=== PATIENT | female | born 1985 | race Caucasian/White ===

== ENCOUNTER 2018-09-12 15:59 | Emergency (ER) | payer MEDICAID ==
[~2018-09-12] VITALS: Ht 154.9 cm; Wt 63.0 kg
[2018-09-12] MEDS ORDERED: PNV1TABL50 MT (16:24)
[2018-09-12] MEDS ORDERED: ACETAMINOPHEN 325MG TABLET PO PRN (17:30)
[2018-09-12 18:10] LABS: BASOPHILS % 0.2 % (0.0-2.0); EOSINOPHILS % 1.5 % (0.0-5.0); HEMATOCRIT. 37.8 % (36.0-48.0); HEMOGLOBIN. 12.8 g/dL (12.0-16.0); MEAN CORPUSCULAR HEMOGLOBIN 27.6 pg (28.0-32.0); MEAN CORPUSCULAR VOLUME 81.2 fL (81.0-99.0); MEAN PLATELET VOLUME 7.4 fl (7.4-10.4); MONOCYTES % 5.5 % (2.0-8.0); NEUTROPHILS % 72.8 % (40.0-76.0); PLATELET 273 x1000/uL (130-400); RED BLOOD CELL COUNT 4.65 mill/uL (4.2-5.4)
[2018-09-12 18:13] LABS: CHLORIDE 107 mEq/L (98-107)
[2018-09-12 18:58] LABS: CLARITY URINE TURBID (CLEAR); COLOR URINE YELLOW (YELLOW); KETONES URINE NEGATIVE (NEGATIVE); LEUKOCYTE ESTERASE URINE 3+ (NEGATIVE); NITRITE URINE NEGATIVE (NEGATIVE); OCCULT BLOOD URINE 2+ (NEGATIVE); PROTEIN URINE TRACE (NEGATIVE); SPECIFIC GRAVITY URINE 1.016 (1.005-1.030); UROBILINOGEN URINE 0.2 E.U./dL (0.2-1.0)
[2018-09-12 20:58] VITALS: BP 108/66
== END 2018-09-12 21:08 | disposition home or self-care (01) ==
LOC: ER 15:59
DX: O23.12 Infections of bladder in pregnancy, second trimester (principal); Z3A.17 17 weeks gestation of pregnancy; Z88.0 Allergy status to penicillin
CPT/HCPCS: 36415; 76805; 80048; 81025; 84702; 99284

== ENCOUNTER 2018-11-19 19:44 | Emergency (ER) | payer MEDICAID ==
[~2018-11-19 19:44] MED LIST: PNV1TABL50 MT
[2018-11-20] MEDS ORDERED: FERR325T6 PO (00:11)
[2018-11-20] MEDS ORDERED: PREN1TAB78 PO (00:11)
== END 2018-11-19 21:44 | disposition short-term general hospital (02) ==
LOC: ER 19:44
DX: O26.899 Other specified pregnancy related conditions, unspecified trimester (principal); R10.9 Unspecified abdominal pain; M54.9 Dorsalgia, unspecified; Z3A.00 Weeks of gestation of pregnancy not specified
CPT/HCPCS: 99285

== ENCOUNTER 2018-11-19 21:23 | Observation (INO) | payer MEDICAID ==
[2018-11-19 23:34] LABS: CLARITY URINE CLEAR (CLEAR); COLOR URINE YELLOW (YELLOW); KETONES URINE NEGATIVE (NEGATIVE); LEUKOCYTE ESTERASE URINE NEGATIVE (NEGATIVE); NITRITE URINE NEGATIVE (NEGATIVE); OCCULT BLOOD URINE 1+ (NEGATIVE); PROTEIN URINE NEGATIVE (NEGATIVE); SPECIFIC GRAVITY URINE 1.007 (1.005-1.030); UROBILINOGEN URINE 0.2 E.U./dL (0.2-1.0)
[2018-11-20] MEDS ORDERED: PREN1TAB78 PO (00:11)
[2018-11-20] MEDS ORDERED: FERR325T6 PO (00:11)
== END 2018-11-20 00:35 | disposition home or self-care (01) ==
LOC: 8 EST LDRP 21:23
PROVIDERS: ADMIT Specialist; ATTEND Specialist
DX: O26.892 Other specified pregnancy related conditions, second trimester (principal); M54.5 Low back pain; R42 Dizziness and giddiness; O62.9 Abnormality of forces of labor, unspecified; Z3A.27 27 weeks gestation of pregnancy
CPT/HCPCS: 81003; 99281; G0378

== ENCOUNTER 2018-12-20 11:26 | Observation (INO) | payer MEDICAID ==
[~2018-12-20] VITALS: Ht 157.5 cm; Wt 82.6 kg
[~2018-12-20 11:26] MED LIST changes: +FERR325T6 PO; -PNV1TABL50 MT; +PREN1TAB78 PO
[2018-12-20 12:30] LABS: CLARITY URINE CLEAR (CLEAR); COLOR URINE YELLOW (YELLOW); KETONES URINE NEGATIVE (NEGATIVE); LEUKOCYTE ESTERASE URINE 1+ (NEGATIVE); NITRITE URINE NEGATIVE (NEGATIVE); OCCULT BLOOD URINE 2+ (NEGATIVE); PH URINE 6.5 (4.5-8.0); PROTEIN URINE NEGATIVE (NEGATIVE); SPECIFIC GRAVITY URINE 1.007 (1.005-1.030)
[2018-12-20] MEDS ORDERED: CLINDAMYCIN 900 MG in DEXTROSE 5% WATER 50 ML IV SCH (13:00)
[2018-12-20] MEDS ORDERED: LACTATED RINGERS 1,000 ML IV SCH (13:00)
== END 2018-12-20 14:45 | disposition home or self-care (01) ==
LOC: 8 EST LDRP 11:26
PROVIDERS: ADMIT Obstetrics & Gynecology; ATTEND Obstetrics & Gynecology
DX: O26.893 Other specified pregnancy related conditions, third trimester (principal); M54.5 Low back pain; R10.2 Pelvic and perineal pain; R35.0 Frequency of micturition; R10.30 Lower abdominal pain, unspecified; Z3A.31 31 weeks gestation of pregnancy
CPT/HCPCS: 81003; 96365; 99281; G0378; J3490; J7060; 96360; 96361

== ENCOUNTER 2019-02-15 18:09 | Inpatient (IN) | payer MEDICAID ==
[~2019-02-15] VITALS: Ht 152.4 cm; Wt 73.9 kg
[2019-02-15] MEDS ORDERED: DEXT 5%/LR + PITOCIN 20UNITS/L 1,000 ML IV SCH (18:31)
[2019-02-15] MEDS ORDERED: LIDOCAINE HCL 1% 20ML VIAL (Pyxis) INJ INFIL SCH (18:45)
[2019-02-15 19:18] LABS: CLARITY URINE CLEAR (CLEAR); COLOR URINE YELLOW (YELLOW); KETONES URINE NEGATIVE (NEGATIVE); LEUKOCYTE ESTERASE URINE 1+ (NEGATIVE); NITRITE URINE NEGATIVE (NEGATIVE); OCCULT BLOOD URINE 2+ (NEGATIVE); PROTEIN URINE 2+ (NEGATIVE); SPECIFIC GRAVITY URINE 1.011 (1.005-1.030); UROBILINOGEN URINE 0.2 E.U./dL (0.2-1.0)
[2019-02-15 19:26] LABS: BASOPHILS % 0.4 % (0.0-2.0); EOSINOPHILS % 1.1 % (0.0-5.0); HEMATOCRIT. 33.8 % (36.0-48.0); HEMOGLOBIN. 11.5 g/dL (12.0-16.0); LYMPHOCYTES % 24.5 % (20.0-50.0); MEAN CORPUSCULAR HEMOGLOBIN 26.4 pg (28.0-32.0); MEAN CORPUSCULAR VOLUME 77.8 fL (81.0-99.0); MEAN PLATELET VOLUME 8.5 fl (7.4-10.4); MONOCYTES % 6.9 % (2.0-8.0); NEUTROPHILS % 67.1 % (40.0-76.0); PLATELET 238 x1000/uL (130-400); RED BLOOD CELL COUNT 4.35 mill/uL (4.2-5.4); RED CELL DISTRIBUTION WIDTH 15.6 % (11.6-14.6)
[2019-02-15 19:27] LABS: CHLORIDE 110 mEq/L (98-107)
[2019-02-15 19:29] LABS: *AMPHETAMINES SCREEN URINE NEGATIVE (NEGATIVE); *BARBITURATES SCREEN URINE NEGATIVE (NEGATIVE); *BENZODIAZEPINES SCREEN URINE NEGATIVE (NEGATIVE); *COCAINE SCREEN URINE NEGATIVE (NEGATIVE); INR 0.9; METHADONE URINE SCREEN NEGATIVE (NEGATIVE); OPIATES URINE SCREEN NEGATIVE (NEGATIVE); PARTIAL THROMBOPLASTIN TIME 26.5 sec (23.4-31.0); PROTHROMBIN TIME 9.2 sec (9.6-11.0)
[2019-02-15 19:30] LABS: CANNABINOID URINE SCREEN NEGATIVE (NEGATIVE); PHENCYCLIDINE URINE SCREEN NEGATIVE (NEGATIVE)
[2019-02-15 20:15] LABS: HEPATITIS B SURFACE ANTIGEN NEGATIVE
[2019-02-15] MEDS ORDERED: DIPHENHYDRAMINE 50MG/ML VIAL IV PRN (20:15)
[2019-02-15] MEDS ORDERED: DIPHENHYDRAMINE 50MG/ML VIAL IM PRN (20:15)
[2019-02-15] MEDS ORDERED: ROPIVACAINE HCL/PF EPIDURAL 200 ML EPI SCH (20:15)
[2019-02-15] MEDS ORDERED: ONDANSETRON HCL 4MG/2ML INJ IV PRN (20:15)
[2019-02-15] MEDS ORDERED: BUTORPHANOL TARTRATE 2 MG/ML VIAL IV NR (20:15)
[2019-02-15] MEDS: LACTATED RINGERS 1,000 ML IV SCH ×2 (20:16→22:47)
[2019-02-15 21:41] LABS: CLARITY URINE CLEAR (CLEAR); COLOR URINE YELLOW (YELLOW); KETONES URINE NEGATIVE (NEGATIVE); LEUKOCYTE ESTERASE URINE NEGATIVE (NEGATIVE); NITRITE URINE NEGATIVE (NEGATIVE); OCCULT BLOOD URINE 1+ (NEGATIVE); PH URINE 6.5 (4.5-8.0); PROTEIN URINE TRACE (NEGATIVE); SPECIFIC GRAVITY URINE 1.003 (1.005-1.030); UROBILINOGEN URINE 0.2 E.U./dL (0.2-1.0)
[2019-02-16] MEDS ORDERED: DEXT 5%/LR + PITOCIN 20UNITS/L 1,000 ML IV SCH ×2 (05:00→07:08)
[2019-02-16] MEDS ORDERED: RHO(D) IMMUNE GLOBULIN 300 MCG/SYR IM PRN (07:15)
[2019-02-16] MEDS ORDERED: ACETAMINOPHEN WITH CODEINE 300/30MG TABLET PO PRN (07:15)
[2019-02-16] MEDS ORDERED: IBUPROFEN 400MG TABLET PO PRN (07:15)
[2019-02-16] MEDS ORDERED: HEMORRHOIDAL SUPP PR PRN (07:15)
[2019-02-16] MEDS ORDERED: DIPHENHYDRAMINE 25MG CAPSULE PO PRN (07:15)
[2019-02-16] MEDS ORDERED: LANOLIN OINT 7GM TUBE TOP PRN (07:15)
[2019-02-16] MEDS ORDERED: GLYCERIN/WITCH HAZEL LEAF MEDICATED PAD TOP PRN (07:15)
[2019-02-16] MEDS: IBUPROFEN 800MG TABLET PO PRN ×2 (07:44→19:40)
[2019-02-16 10:00] VITALS: BP 132/65
[2019-02-16 10:30] VITALS: BP 136/62
[2019-02-16 15:20] VITALS: BP 138/69
[2019-02-16] MEDS: PRENATAL VIT/FE FUMARATE/FA TABLET PO SCH (19:40)
[2019-02-16] MEDS: DOCUSATE SODIUM 100MG CAPSULE PO SCH (21:00)
[2019-02-17] MEDS ORDERED: ERYTHROMYCIN 250MG TABLET PO SCH
[2019-02-17] MEDS: DOCUSATE SODIUM 100MG CAPSULE PO SCH (06:05)
[2019-02-17 07:11] LABS: BASOPHILS % 0.5 % (0.0-2.0); EOSINOPHILS % 1.5 % (0.0-5.0); HEMATOCRIT. 30.5 % (36.0-48.0); HEMOGLOBIN. 10.3 g/dL (12.0-16.0); LYMPHOCYTES % 24.8 % (20.0-50.0); MEAN CORPUSCULAR HEMOGLOBIN 26.5 pg (28.0-32.0); MEAN CORPUSCULAR VOLUME 78.5 fL (81.0-99.0); MEAN PLATELET VOLUME 8.8 fl (7.4-10.4); MONOCYTES % 7.4 % (2.0-8.0); NEUTROPHILS % 65.8 % (40.0-76.0); PLATELET 201 x1000/uL (130-400); RED BLOOD CELL COUNT 3.89 mill/uL (4.2-5.4); RED CELL DISTRIBUTION WIDTH 15.3 % (11.6-14.6)
[2019-02-17 08:06] VITALS: BP 129/84
[2019-02-17] MEDS: FERROUS SULFATE 325MG TABLET PO SCH ×3 (10:21→17:55)
[2019-02-17] MEDS: PRENATAL VIT/FE FUMARATE/FA TABLET PO SCH (10:21)
[2019-02-17] MEDS: IBUPROFEN 800MG TABLET PO PRN ×2 (10:26→16:17)
[2019-02-17] MEDS: ERYTHROMYCIN 250MG CAPSULE DR PO SCH ×2 (12:19→17:55)
[2019-02-17 16:23] VITALS: BP 128/67
[2019-02-17 19:45] VITALS: BP 126/69
[2019-02-18 00:48] VITALS: BP 138/60
[2019-02-18] MEDS: DOCUSATE SODIUM 100MG CAPSULE PO SCH (00:48)
[2019-02-18] MEDS: ERYTHROMYCIN 250MG CAPSULE DR PO SCH ×3 (00:48→12:34)
[2019-02-18] MEDS: IBUPROFEN 800MG TABLET PO PRN ×2 (00:48→09:02)
[2019-02-18 08:00] VITALS: BP 136/55
[2019-02-18] MEDS: PRENATAL VIT/FE FUMARATE/FA TABLET PO SCH (09:01)
[2019-02-18] MEDS: FERROUS SULFATE 325MG TABLET PO SCH ×2 (09:01→12:34)
== END 2019-02-18 12:15 | disposition home or self-care (01) | DRG 560 ==
LOC: OBSVTOIN 18:09 → 8 EST LDRP 18:09 → 8EST 02-16 11:53
PROVIDERS: ADMIT Specialist; ATTEND Specialist
PROC: 10E0XZZ Delivery of Products of Conception, External Approach (ICD-10-PCS; principal; 2019-02-16)
PROC: 3E0R3BZ Introduction of Anesthetic Agent into Spinal Canal, Percutaneous Approach (ICD-10-PCS; 2019-02-16)
PROC: 00HU33Z Insertion of Infusion Device into Spinal Canal, Percutaneous Approach (ICD-10-PCS; 2019-02-16)
DX: O80 Encounter for full-term uncomplicated delivery (principal); Z37.0 Single live birth; Z3A.38 38 weeks gestation of pregnancy; Z88.0 Allergy status to penicillin; Z79.899 Other long term (current) drug therapy
CPT/HCPCS: 36415; 80305; 84550; 85384; 86592; 86593; 86703; 86762; 86780; 86850; 86900; 87340; 99281; G0378; J0595; J2590; J2795; A4315

== ENCOUNTER 2020-04-30 22:17 | Inpatient (IN) | payer MEDICAID ==
[~2020-04-30] VITALS: Ht 157.5 cm; Wt 66.7 kg
[~2020-04-30 22:17] MED LIST changes: -PREN1TAB78 PO
[2020-04-30] MEDS ORDERED: MISOPROSTOL 100MCG TABLET VG SCH (23:15)
[2020-04-30] MEDS ORDERED: BUTORPHANOL TARTRATE 2 MG/ML VIAL IV PRN (23:15)
[2020-04-30] MEDS ORDERED: PENICILLIN G POTASSIUM 5 MMU in DEXT 5% WATER 100 ML IV SCH (23:15)
[2020-04-30] MEDS ORDERED: NALOXONE HCL 0.4 MG/ML 1ML VIAL IM PRN (23:15)
[2020-04-30] MEDS ORDERED: CARBOPROST TROMETHAMINE 250 MCG/ML AMPUL IM PRN (23:15)
[2020-04-30] MEDS ORDERED: LIDOCAINE HCL 1% 20ML VIAL (Pyxis) INJ INFIL SCH (23:15)
[2020-04-30] MEDS ORDERED: METHYLERGONOVINE MALEATE 0.2 MG/ML IM PRN (23:15)
[2020-04-30] MEDS ORDERED: PENICILLIN G POTASSIUM 2.5 MMU in DEXTROSE 5% WATER 50 ML IV SCH (23:30)
[2020-04-30] MEDS: LACTATED RINGERS 1,000 ML IV SCH (23:54)
[2020-05-01] MEDS ORDERED: CLINDAMYCIN 600 MG in DEXTROSE 5% WATER 50 ML IV SCH (00:30)
[2020-05-01 01:22] LABS: BASOPHILS % 0.2 % (0.0-2.0); EOSINOPHILS % 0.9 % (0.0-5.0); HEMATOCRIT. 31.3 % (36.0-48.0); HEMOGLOBIN. 10.6 g/dL (12.0-16.0); LYMPHOCYTES % 20.9 % (20.0-50.0); MEAN CORPUSCULAR HEMOGLOBIN 26.8 pg (28.0-32.0); MEAN PLATELET VOLUME 8.4 fl (7.4-10.4); PLATELET 268 x1000/uL (130-400); RED BLOOD CELL COUNT 3.97 mill/uL (4.2-5.4); RED CELL DISTRIBUTION WIDTH 13.9 % (11.6-14.6)
[2020-05-01] MEDS: CLINDAMYCIN 600MG PREMIX 50 ML IV SCH ×2 (01:26→09:03)
[2020-05-01 02:09] LABS: INR 0.9; PARTIAL THROMBOPLASTIN TIME 25.2 sec (23.4-31.0); PROTHROMBIN TIME 9.8 sec (9.6-11.0)
[2020-05-01 02:15] LABS: HEPATITIS B SURFACE ANTIGEN NEGATIVE
[2020-05-01 02:56] LABS: *AMPHETAMINES SCREEN URINE NEGATIVE (NEGATIVE); *BARBITURATES SCREEN URINE NEGATIVE (NEGATIVE); *BENZODIAZEPINES SCREEN URINE NEGATIVE (NEGATIVE); *COCAINE SCREEN URINE NEGATIVE (NEGATIVE); METHADONE URINE SCREEN NEGATIVE (NEGATIVE)
[2020-05-01 02:57] LABS: CANNABINOID URINE SCREEN NEGATIVE (NEGATIVE); OPIATES URINE SCREEN NEGATIVE (NEGATIVE); PHENCYCLIDINE URINE SCREEN NEGATIVE (NEGATIVE)
[2020-05-01 03:39] LABS: CLARITY URINE CLEAR (CLEAR); COLOR URINE DARK YELLOW (YELLOW); KETONES URINE TRACE (NEGATIVE); LEUKOCYTE ESTERASE URINE TRACE (NEGATIVE); NITRITE URINE NEGATIVE (NEGATIVE); OCCULT BLOOD URINE 1+ (NEGATIVE); PROTEIN URINE 1+ (NEGATIVE); SPECIFIC GRAVITY URINE 1.036 (1.005-1.030)
[2020-05-01] MEDS: LACTATED RINGERS 1,000 ML IV SCH (04:35)
[2020-05-01] MEDS ORDERED: ROPIVACAINE HCL/PF EPIDURAL 200 ML EPI SCH (08:15)
[2020-05-01] MEDS ORDERED: ROPIVACAINE HCL/PF EPIDURAL 200 ML EPI ONE (08:18)
[2020-05-01] MEDS: DEXT 5%/LR + PITOCIN 20UNITS/L 1,000 ML IV SCH ×2 (14:12→16:02)
[2020-05-01 16:15] VITALS: BP 119/58
[2020-05-01] MEDS ORDERED: DEXT 5%/LR + PITOCIN 20UNITS/L 1,000 ML IV SCH (16:55)
[2020-05-01] MEDS ORDERED: MINERAL OIL 30ML BOTTLE TOP PRN (17:00)
[2020-05-01] MEDS ORDERED: IBUPROFEN 400MG TABLET PO PRN (17:00)
[2020-05-01] MEDS ORDERED: DIPHENHYDRAMINE 25MG CAPSULE PO PRN (17:00)
[2020-05-01] MEDS ORDERED: BENZOCAINE/LANOLIN/ALOE VERA SPRAY TOP PRN (17:00)
[2020-05-01] MEDS ORDERED: HEMORRHOIDAL SUPP PR PRN (17:00)
[2020-05-01] MEDS ORDERED: GLYCERIN/WITCH HAZEL LEAF MEDICATED PAD TOP PRN (17:00)
[2020-05-01] MEDS ORDERED: ACETAMINOPHEN WITH CODEINE 300/30MG TABLET PO PRN (17:00)
[2020-05-01] MEDS ORDERED: BISACODYL 10MG SUPP PR PRN (17:00)
[2020-05-01] MEDS: IBUPROFEN 800MG TABLET PO PRN (17:24)
[2020-05-01] MEDS ORDERED: LIDOCAINE HCL 2%/EPINEPHRINE 1:100,000 20 ML VIAL INFIL ONE (17:37)
[2020-05-01] MEDS: DOCUSATE SODIUM 100MG CAPSULE PO SCH (20:50)
[2020-05-01] MEDS: SIMETHICONE 80MG TABLET CHEW PO SCH (20:52)
[2020-05-01] MEDS: MAGNESIUM/ALUMINUM HYDROXIDE/SIMETHICONE 30ML UDC PO SCH (20:53)
[2020-05-01 22:00] VITALS: BP 122/59
[2020-05-02 05:15] VITALS: BP 119/61
[2020-05-02 06:27] LABS: BASOPHILS % 0.2 % (0.0-2.0); EOSINOPHILS % 1.1 % (0.0-5.0); HEMOGLOBIN. 10.2 g/dL (12.0-16.0); LYMPHOCYTES % 21.6 % (20.0-50.0); MEAN CORPUSCULAR VOLUME 79.1 fL (81.0-99.0); MEAN PLATELET VOLUME 8.5 fl (7.4-10.4); MONOCYTES % 6.8 % (2.0-8.0); NEUTROPHILS % 70.3 % (40.0-76.0); PLATELET 224 x1000/uL (130-400); RED BLOOD CELL COUNT 3.79 mill/uL (4.2-5.4); RED CELL DISTRIBUTION WIDTH 13.9 % (11.6-14.6)
[2020-05-02] MEDS: MAGNESIUM/ALUMINUM HYDROXIDE/SIMETHICONE 30ML UDC PO SCH ×2 (07:30→21:35)
[2020-05-02 08:00] VITALS: BP 96/56
[2020-05-02] MEDS: SIMETHICONE 80MG TABLET CHEW PO SCH ×3 (08:00→21:34)
[2020-05-02] MEDS: FERROUS SULFATE 325MG TABLET PO SCH ×2 (08:56→12:30)
[2020-05-02] MEDS: PRENATAL VIT/FE FUMARATE/FA TABLET PO SCH (09:11)
[2020-05-02] MEDS: IBUPROFEN 800MG TABLET PO PRN ×2 (09:12→21:37)
[2020-05-02 14:57] VITALS: BP 112/56
[2020-05-02 19:30] VITALS: BP 134/74
[2020-05-02] MEDS: DOCUSATE SODIUM 100MG CAPSULE PO SCH (21:34)
[2020-05-03 04:00] VITALS: BP 118/56
[2020-05-03 08:00] VITALS: BP 136/68
[2020-05-03] MEDS: PRENATAL VIT/FE FUMARATE/FA TABLET PO SCH (09:00)
== END 2020-05-03 11:45 | disposition home or self-care (01) | DRG 560 ==
LOC: OBSVTOIN 22:17 → 8 EST LDRP 22:17 → 8EST 05-01 17:38
PROVIDERS: ADMIT Obstetrics & Gynecology; ATTEND Obstetrics & Gynecology
PROC: 10E0XZZ Delivery of Products of Conception, External Approach (ICD-10-PCS; principal; 2020-05-01)
PROC: 3E0R3BZ Introduction of Anesthetic Agent into Spinal Canal, Percutaneous Approach (ICD-10-PCS; 2020-05-01)
PROC: 00HU33Z Insertion of Infusion Device into Spinal Canal, Percutaneous Approach (ICD-10-PCS; 2020-05-01)
DX: O42.913 Preterm premature rupture of membranes, unspecified as to length of time between rupture and onset of labor, third trimester (principal); Z3A.37 37 weeks gestation of pregnancy; Z37.0 Single live birth; Z88.0 Allergy status to penicillin
CPT/HCPCS: 36415; 80305; 81003; 85025; 86592; 86593; 86703; 86762; 86780; 86850; 86900; 87340; 99281; G0378; J2590; J2795; J3490

== ENCOUNTER 2022-07-04 16:23 | Observation (INO) | payer MEDICAID ==
[~2022-07-04] VITALS: Ht 162.6 cm; Wt 78.5 kg
[2022-07-04] MEDS ORDERED: LACTATED RINGERS 1,000 ML IV SCH (17:45)
[2022-07-04] MEDS ORDERED: RHO(D) IMMUNE GLOBULIN 300 MCG/SYR IM NR (19:00)
[2022-07-04] MEDS ORDERED: BUTORPHANOL TARTRATE 2 MG/ML VIAL IV PRN (19:00)
[2022-07-04] MEDS ORDERED: DEXT 5%/LACTATED RINGERS 1,000 ML IV SCH (19:00)
[2022-07-04] MEDS ORDERED: MISOPROSTOL 100MCG TABLET VG SCH (19:00)
[2022-07-04] MEDS ORDERED: PENICILLIN G POTASSIUM 2.5 MMU in DEXTROSE 5% WATER 50 ML IV SCH (19:00)
[2022-07-04] MEDS ORDERED: OXYTOCIN 30 UNITS/500ML NS PMX 500 ML IV SCH (19:00)
[2022-07-04] MEDS ORDERED: PENICILLIN G POTASSIUM 5 MMU in DEXT 5% WATER 100 ML IV SCH (19:30)
[2022-07-04 19:45] LABS: CLARITY URINE CLEAR (CLEAR); COLOR URINE YELLOW (YELLOW); KETONES URINE NEGATIVE (NEGATIVE); LEUKOCYTE ESTERASE URINE NEGATIVE (NEGATIVE); NITRITE URINE NEGATIVE (NEGATIVE); OCCULT BLOOD URINE 3+ (NEGATIVE); PH URINE 6.5 (4.5-8.0); PROTEIN URINE 2+ (NEGATIVE); SPECIFIC GRAVITY URINE 1.013 (1.005-1.030); UROBILINOGEN URINE 0.2 E.U./dL (0.2-1.0)
[2022-07-04 19:56] LABS: *AMPHETAMINES SCREEN URINE NEGATIVE (NEGATIVE); *BARBITURATES SCREEN URINE NEGATIVE (NEGATIVE); *BENZODIAZEPINES SCREEN URINE NEGATIVE (NEGATIVE); *COCAINE SCREEN URINE NEGATIVE (NEGATIVE); CANNABINOID URINE SCREEN NEGATIVE (NEGATIVE); METHADONE URINE SCREEN NEGATIVE (NEGATIVE); OPIATES URINE SCREEN NEGATIVE (NEGATIVE); PHENCYCLIDINE URINE SCREEN NEGATIVE (NEGATIVE)
[2022-07-04] MEDS ORDERED: ROPIVACAINE HCL/PF EPIDURAL 200 ML EPI NR (20:45)
[2022-07-04 20:51] LABS: BASOPHILS % 0.3 % (0.0-2.0); EOSINOPHILS % 1.1 % (0.0-5.0); HEMATOCRIT. 31.4 % (36.0-48.0); HEMOGLOBIN. 11.1 g/dL (12.0-16.0); LYMPHOCYTES % 23.5 % (20.0-50.0); MEAN CORPUSCULAR HEMOGLOBIN 28.8 pg (28.0-32.0); MEAN CORPUSCULAR VOLUME 81.5 fL (81.0-99.0); MEAN PLATELET VOLUME 8.4 fl (7.4-10.4); MONOCYTES % 7.6 % (2.0-8.0); NEUTROPHILS % 67.5 % (40.0-76.0); PLATELET 247 x1000/uL (130-400); RED BLOOD CELL COUNT 3.85 mill/uL (4.2-5.4)
[2022-07-04 20:57] LABS: INR 0.9; PARTIAL THROMBOPLASTIN TIME 26.1 sec (23.4-31.0); PROTHROMBIN TIME 10.1 sec (9.6-11.0)
[2022-07-04] MEDS ORDERED: ACETAMINOPHEN 325MG TABLET PO PRN (22:15)
== END 2022-07-05 10:10 | disposition home or self-care (01) ==
LOC: INTOOBSV 16:23 → 8 EST LDRP 16:23 → OBSVTOIN 16:23
PROVIDERS: ADMIT Obstetrics & Gynecology; ATTEND Obstetrics & Gynecology
DX: O62.9 Abnormality of forces of labor, unspecified (principal); Z20.822 Contact with and (suspected) exposure to COVID-19; Z3A.35 35 weeks gestation of pregnancy; Z79.899 Other long term (current) drug therapy
CPT/HCPCS: 36415; 59025; 76805; 76818; 80305; 81003; 85025; 85610; 85730; 86592; 86593; 86703; 86780; 86850; 86900; 86901; 87340; 87426; 96360; 96361; G0378; J2540; J7060; 99281; J7120

== ENCOUNTER 2022-07-15 13:39 | Inpatient (IN) | payer MEDICAID ==
[~2022-07-15] VITALS: Ht 160 cm; Wt 78.5 kg
[2022-07-15] MEDS ORDERED: RHO(D) IMMUNE GLOBULIN 300 MCG/SYR IM PRN (14:30)
[2022-07-15] MEDS ORDERED: DEXT 5%/LACTATED RINGERS 1,000 ML IV SCH (14:30)
[2022-07-15] MEDS ORDERED: CARBOPROST TROMETHAMINE 250 MCG/ML AMPUL IM PRN (14:30)
[2022-07-15] MEDS ORDERED: NALOXONE HCL 0.4 MG/ML 1ML VIAL IM PRN (14:30)
[2022-07-15] MEDS ORDERED: BUTORPHANOL TARTRATE 2 MG/ML VIAL IV PRN (14:30)
[2022-07-15] MEDS ORDERED: MISOPROSTOL 100MCG TABLET VG SCH (14:30)
[2022-07-15] MEDS ORDERED: LIDOCAINE HCL 1% 20ML VIAL (Pyxis) INJ INFIL SCH (14:30)
[2022-07-15] MEDS: LACTATED RINGERS 1,000 ML IV SCH ×3 (14:51→22:25)
[2022-07-15] MEDS: OXYTOCIN 30 UNITS/500ML NS PMX 500 ML IV SCH (14:58)
[2022-07-15 15:26] LABS: BASOPHILS % 0.4 % (0.0-2.0); EOSINOPHILS % 0.8 % (0.0-5.0); HEMATOCRIT. 34.1 % (36.0-48.0); HEMOGLOBIN. 11.6 g/dL (12.0-16.0); MEAN CORPUSCULAR HEMOGLOBIN 27.5 pg (28.0-32.0); MEAN CORPUSCULAR VOLUME 81.3 fL (81.0-99.0); MEAN PLATELET VOLUME 8.7 fl (7.4-10.4); MONOCYTES % 7.6 % (2.0-8.0); NEUTROPHILS % 69.2 % (40.0-76.0); PLATELET 253 x1000/uL (130-400)
[2022-07-15] MEDS ORDERED: CLINDAMYCIN IN 0.9 % SOD CHLOR 50 ML IV SCH (15:30)
[2022-07-15 15:33] LABS: CLARITY URINE CLOUDY (CLEAR); COLOR URINE YELLOW (YELLOW); KETONES URINE TRACE (NEGATIVE); LEUKOCYTE ESTERASE URINE TRACE (NEGATIVE); NITRITE URINE NEGATIVE (NEGATIVE); OCCULT BLOOD URINE 2+ (NEGATIVE); PH URINE 6.5 (4.5-8.0); PROTEIN URINE 3+ (NEGATIVE); SPECIFIC GRAVITY URINE 1.023 (1.005-1.030)
[2022-07-15 15:56] LABS: INR 0.9; PARTIAL THROMBOPLASTIN TIME 26.2 sec (23.4-31.0); PROTHROMBIN TIME 9.8 sec (9.6-11.0)
[2022-07-15 16:10] LABS: *AMPHETAMINES SCREEN URINE NEGATIVE (NEGATIVE); *BARBITURATES SCREEN URINE NEGATIVE (NEGATIVE); *BENZODIAZEPINES SCREEN URINE NEGATIVE (NEGATIVE); *COCAINE SCREEN URINE NEGATIVE (NEGATIVE); CANNABINOID URINE SCREEN NEGATIVE (NEGATIVE); METHADONE URINE SCREEN NEGATIVE (NEGATIVE); OPIATES URINE SCREEN NEGATIVE (NEGATIVE); PHENCYCLIDINE URINE SCREEN NEGATIVE (NEGATIVE)
[2022-07-15] MEDS ORDERED: FENTANYL CITRATE/PF 50MCG/ML 2ML VIAL ONE (16:30)
[2022-07-15] MEDS ORDERED: ROPIVACAINE HCL/PF EPIDURAL 200 ML EPI SCH (16:30)
[2022-07-15] MEDS ORDERED: ROPIVACAINE HCL/PF EPIDURAL 200 ML EPI ONE (16:31)
[2022-07-15] MEDS ORDERED: ACETAMINOPHEN 500MG TABLET PO PRN (18:15)
[2022-07-15] MEDS ORDERED: CLINDAMYCIN 900 MG PREMIX 50 ML IV SCH (22:00)
[2022-07-16] MEDS: OXYTOCIN 30 UNITS/500ML NS PMX 500 ML IV SCH (01:50)
[2022-07-16] MEDS ORDERED: BISACODYL 10MG SUPP PR PRN (02:00)
[2022-07-16] MEDS ORDERED: OXYTOCIN 30 UNITS/500ML NS PMX 500 ML IV SCH (02:00)
[2022-07-16] MEDS ORDERED: BENZOCAINE/LANOLIN/ALOE VERA SPRAY TOP PRN (02:00)
[2022-07-16] MEDS ORDERED: HEMORRHOIDAL SUPP PR PRN (02:00)
[2022-07-16] MEDS ORDERED: METHYLERGONOVINE MALEATE 0.2 MG/ML IM PRN (02:00)
[2022-07-16] MEDS ORDERED: DIPHENHYDRAMINE 25MG CAPSULE PO PRN (02:00)
[2022-07-16] MEDS ORDERED: GLYCERIN/WITCH HAZEL LEAF MEDICATED PAD TOP PRN (02:00)
[2022-07-16] MEDS ORDERED: RHO(D) IMMUNE GLOBULIN 300 MCG/SYR IM PRN (02:00)
[2022-07-16] MEDS ORDERED: IBUPROFEN 400MG TABLET PO PRN (02:00)
[2022-07-16] MEDS ORDERED: ACETAMINOPHEN WITH CODEINE 300/30MG TABLET PO PRN (02:00)
[2022-07-16] MEDS ORDERED: LANOLIN OINT 7GM TUBE TOP PRN (02:00)
[2022-07-16 03:00] VITALS: BP 128/76
[2022-07-16] MEDS: IBUPROFEN 800MG TABLET PO PRN ×3 (07:42→23:20)
[2022-07-16 07:48] LABS: BASOPHILS % 0.2 % (0.0-2.0); EOSINOPHILS % 0.1 % (0.0-5.0); HEMATOCRIT. 32.4 % (36.0-48.0); HEMOGLOBIN. 11.1 g/dL (12.0-16.0); LYMPHOCYTES % 13.8 % (20.0-50.0); MEAN CORPUSCULAR VOLUME 82.1 fL (81.0-99.0); MEAN PLATELET VOLUME 8.8 fl (7.4-10.4); MONOCYTES % 8.8 % (2.0-8.0); NEUTROPHILS % 77.1 % (40.0-76.0); PLATELET 213 x1000/uL (130-400); RED BLOOD CELL COUNT 3.94 mill/uL (4.2-5.4); RED CELL DISTRIBUTION WIDTH 14.2 % (11.6-14.6)
[2022-07-16 07:50] VITALS: BP 137/85
[2022-07-16] MEDS: PRENATAL VIT/FE FUMARATE/FA TABLET PO SCH (08:09)
[2022-07-16] MEDS: MAGNESIUM/ALUMINUM HYDROXIDE/SIMETHICONE 30ML UDC PO SCH (08:09)
[2022-07-16] MEDS: SIMETHICONE 80MG TABLET CHEW PO SCH (08:10)
[2022-07-16 16:30] VITALS: BP 138/73
[2022-07-16] MEDS ORDERED: SODIUM BICARBONATE 8.4% MEQ/ML 50ML VIAL IV ONE (17:32)
[2022-07-16] MEDS ORDERED: KETOROLAC 60MG/2ML VIAL IM ONE (18:10)
[2022-07-16 19:45] VITALS: BP 130/69
[2022-07-16] MEDS ORDERED: DOCUSATE SODIUM 100MG CAPSULE PO SCH (21:00)
[2022-07-17 04:00] VITALS: BP 132/58
[2022-07-17] MEDS: IBUPROFEN 800MG TABLET PO PRN ×3 (04:47→17:25)
[2022-07-17 07:40] VITALS: BP 143/56
[2022-07-17] MEDS: FERROUS SULFATE 325MG TABLET PO SCH ×3 (07:45→17:25)
[2022-07-17] MEDS: PRENATAL VIT/FE FUMARATE/FA TABLET PO SCH (07:45)
[2022-07-17] MEDS: SIMETHICONE 80MG TABLET CHEW PO SCH ×3 (07:45→17:25)
[2022-07-17] MEDS: MAGNESIUM/ALUMINUM HYDROXIDE/SIMETHICONE 30ML UDC PO SCH ×3 (07:45→17:25)
[2022-07-17 07:55] LABS: BASOPHILS % 0.3 % (0.0-2.0); EOSINOPHILS % 0.8 % (0.0-5.0); HEMATOCRIT. 32.4 % (36.0-48.0); HEMOGLOBIN. 11.1 g/dL (12.0-16.0); LYMPHOCYTES % 18.9 % (20.0-50.0); MEAN CORPUSCULAR VOLUME 81.5 fL (81.0-99.0); MEAN PLATELET VOLUME 8.2 fl (7.4-10.4); MONOCYTES % 5.4 % (2.0-8.0); NEUTROPHILS % 74.6 % (40.0-76.0); PLATELET 232 x1000/uL (130-400); RED BLOOD CELL COUNT 3.98 mill/uL (4.2-5.4); RED CELL DISTRIBUTION WIDTH 14.3 % (11.6-14.6)
[2022-07-17 16:00] VITALS: BP 141/83
== END 2022-07-17 20:15 | disposition home or self-care (01) | DRG 541 ==
LOC: 8 EST LDRP 13:39 → OBSVTOIN 14:16 → 8EST 07-16 06:10
PROVIDERS: ADMIT Obstetrics & Gynecology; ATTEND Obstetrics & Gynecology
PROC: 10E0XZZ Delivery of Products of Conception, External Approach (ICD-10-PCS; principal; 2022-07-16)
PROC: 0UB70ZZ Excision of Bilateral Fallopian Tubes, Open Approach (ICD-10-PCS; 2022-07-16)
DX: O13.4 Gestational [pregnancy-induced] hypertension without significant proteinuria, complicating childbirth (principal); Z37.0 Single live birth; Z20.822 Contact with and (suspected) exposure to COVID-19; Z30.2 Encounter for sterilization; Z3A.38 38 weeks gestation of pregnancy; Z88.0 Allergy status to penicillin
CPT/HCPCS: 36415; 80305; 81003; 85025; 85384; 86592; 86593; 86703; 86762; 86780; 86850; 86900; 87340; 87426; 88302; 99281; G0378; J1885; J2795; J3010; J3490; J7120; J7121; J2590

== ENCOUNTER 2025-03-01 19:49 | Emergency (ER) | payer MEDICAID, OTHER ==
[~2025-03-01] VITALS: Ht 160 cm; Wt 73.0 kg
[2025-03-01 19:55] VITALS: TEMP 37; O2SAT 100
[2025-03-01 21:46] LABS: CLARITY URINE CLEAR (CLEAR); COLOR URINE YELLOW (YELLOW); GLUCOSE URINE NEGATIVE (NEGATIVE); KETONES URINE NEGATIVE (NEGATIVE); LEUKOCYTE ESTERASE URINE NEGATIVE (NEGATIVE); NITRITE URINE NEGATIVE (NEGATIVE); OCCULT BLOOD URINE 1+ (NEGATIVE); PH URINE 6.5 (4.5-8.0); PROTEIN URINE 2+ (NEGATIVE); SPECIFIC GRAVITY URINE 1.005 (1.005-1.030); UROBILINOGEN URINE 0.2 E.U./dL (0.2-1.0)
[2025-03-01 21:57] LABS: BACTERIA URINE TRACE; SQUAMOUS EPITHELIAL CELL URINE FEW /lpf (RARE/1+); WBC URINE 0-2 /hpf (0-2)
[2025-03-01 22:15] LABS: BASOPHILS % 0.2 % (0.0-2.0); EOSINOPHILS % 0.3 % (0.0-5.0); HEMATOCRIT. 31.3 % (36.0-48.0); HEMOGLOBIN. 10.3 g/dL (12.0-16.0); LYMPHOCYTES % 14.7 % (20.0-50.0); MEAN PLATELET VOLUME 7.2 fl (7.4-10.4); MONOCYTES % 8.9 % (2.0-8.0); NEUTROPHILS % 75.9 % (40.0-76.0); PLATELET 308 x1000/uL (130-400); RED BLOOD CELL COUNT 4.15 mill/uL (4.2-5.4); RED CELL DISTRIBUTION WIDTH 14.5 % (11.6-14.6)
[2025-03-01 22:26] LABS: INR 1.0
[2025-03-01 22:27] LABS: HCG SCREEN NEGATIVE
[2025-03-01 22:29] LABS: CREATININE 1.7 mg/dL (0.6-1.0)
[2025-03-01 22:30] LABS: UREA NITROGEN BLOOD 18 mg/dL (9-23)
[2025-03-01 22:31] LABS: ASPARTATE AMINOTRANSFERASE 21 IU/L (<34)
[2025-03-01 22:32] LABS: BILIRUBIN DIRECT 0.2 mg/dL (<=3.0); BILIRUBIN TOTAL 0.6 mg/dL (0.1-1.0); PROTEIN TOTAL 7.0 g/dL (6.0-8.3)
[2025-03-01] MEDS: KETOROLAC 30MG/ML VIAL IV NR (22:41)
[2025-03-01 23:05] VITALS: BP 138/59; PULSE 66; RESP 18; O2SAT 99
[2025-03-02] MEDS: CEFTRIAXONE 1GM/50ML 50 ML IV ONE (01:18)
[2025-03-02] MEDS ORDERED: CIPR-452 MT (01:23)
[2025-03-02] MEDS ORDERED: IOHEXOL-300 100 ML BOTTLE ONE (07:00)
== END 2025-03-02 01:51 | disposition home or self-care (01) ==
LOC: ER 19:49
DX: N10 Acute pyelonephritis (principal); Z98.51 Tubal ligation status; Z79.899 Other long term (current) drug therapy; Z88.0 Allergy status to penicillin
CPT/HCPCS: 99285; 74177; 96375; 80076; 80048; 81003; 84703; 83690; 85025; 85610; 36415; 96365; J1885; Q9967; J0696